=== PATIENT | male | born 1975 | race Two or more races ===

== ENCOUNTER 2020-08-15 09:55 | Outpatient (CLI) | payer OTHER | END 2020-08-15 23:59 | disposition home or self-care (01) | LOC: LAB 09:55 | PROVIDERS: ATTEND Specialist | DX: Z01.812 Encounter for preprocedural laboratory examination (principal); Z20.828 Contact with and (suspected) exposure to other viral communicable diseases | CPT/HCPCS: 87426; C9803; U0003 ==

== ENCOUNTER 2020-08-18 07:34 | Day surgery (SDC) | payer OTHER ==
[~2020-08-18 07:34] MED LIST: ANESTHESIA TRAY IN PYXIS 1 EA TRAY MC ONE
[2020-08-18 08:35] LABS: BASOPHILS % (AUTO) 0.6 % (0.0-2.0); EOSINOPHILS % (AUTO) 0.9 % (0.0-6.0); HEMATOCRIT 54 % (39-51); HEMOGLOBIN 17.8 g/dL (13.5-17.5); LYMPHOCYTES # (AUTO) 1.5 /CMM (0.8-4.8); LYMPHOCYTES % (AUTO) 18.7 % (20.0-44.0); MEAN CORPUSCULAR HGB CONC 33 g/dl (31.0-36.0); MEAN CORPUSCULAR VOLUME 89 fL (80-96); MONOCYTES # (AUTO) 0.7 /CMM (0.1-1.30); MONOCYTES % (AUTO) 8.6 % (2.0-12.0); NEUTROPHILS # (AUTO) 5.7 /CMM (1.8-8.9); NEUTROPHILS % (AUTO) 71.2 % (43.0-81.0); PLATELET COUNT (AUTO) 302 /CMM (150-450); RED BLOOD CELL COUNT(AUTO) 6.01 MIL/uL (4.5-6.0); WHITE BLOOD COUNT (AUTO) 7.9 K/uL (4.3-11.0)
[2020-08-18 08:48] LABS: CALCIUM, SERUM 8.7 mg/dL (8.5-10.1); CREATININE 1.1 mg/dL (0.6-1.3); POTASSIUM 3.3 mmol/L (3.5-5.1)
[2020-08-18] MEDS ORDERED: LIDOCAINE 1% INJ 50 ML MDV IJ ONE (08:54)
[2020-08-18] MEDS ORDERED: BUPIVACAINE 0.5 % PF 150 MG/30 ML VIAL ONE (08:54)
[2020-08-18] MEDS ORDERED: LIDOCAINE 1%-EPI 1:100,000 20 ML VIAL ONE (08:54)
[2020-08-18] MEDS ORDERED: methylPREDNISolone ACETATE 80 MG/ML VIAL ONE (08:55)
[2020-08-18] MEDS ORDERED: FLUMAZENIL 0.5 MG VIAL ONE (08:56)
[2020-08-18] MEDS ORDERED: FENTANYL PF 100MCG/2ML AMPUL ONE ×2 (08:57→09:36)
[2020-08-18] MEDS ORDERED: KETOROLAC TROMETHAMINE INJ 30 MG/ML VIAL ONE (09:42)
[2020-08-18] MEDS ORDERED: HYDROCODONE/APAP 5/325MG TABLET ONE (10:20)
== END 2020-08-18 11:15 | disposition home or self-care (01) ==
LOC: DS 07:34
PROVIDERS: ATTEND Specialist
DX: M54.16 Radiculopathy, lumbar region (principal); M51.26 Other intervertebral disc displacement, lumbar region; E66.3 Overweight
CPT/HCPCS: 36415; 64493; 72100; 80048; 85025; 86850; A6402; J1040; J1885; J3010; J3490 ×3